=== PATIENT | female | born 1985 | race Caucasian/White ===

== ENCOUNTER 2017-12-14 03:44 | Inpatient (IN) | payer BC, MEDICAID, OTHER ==
[~2017-12-14] VITALS: Ht 160 cm; Wt 100.2 kg
[2017-12-14] MEDS ORDERED: PREN1TAB78 PO (04:27)
[2017-12-14] MEDS ORDERED: DEXT 5%/LR + PITOCIN 20UNITS/L 1,000 ML IV SCH ×2 (04:28→06:45)
[2017-12-14] MEDS ORDERED: LACTATED RINGERS 1,000 ML IV SCH (04:28)
[2017-12-14] MEDS ORDERED: NALOXONE HCL 0.4 MG/ML 1ML VIAL IM PRN (04:30)
[2017-12-14] MEDS ORDERED: MAGNESIUM 20 G PREMIX (L & D) 500 ML IV SCH (04:30)
[2017-12-14] MEDS ORDERED: BUTORPHANOL TARTRATE 2 MG/ML VIAL IV PRN (04:30)
[2017-12-14] MEDS ORDERED: METHYLERGONOVINE MALEATE 0.2 MG/ML IM PRN (04:30)
[2017-12-14] MEDS ORDERED: LIDOCAINE HCL 1% 20ML VIAL (Pyxis) INJ INFIL SCH (04:30)
[2017-12-14] MEDS ORDERED: AMPICILLIN 2,000 MG in SODIUM CHLORIDE 0.9% 100 ML IV SCH (05:00)
[2017-12-14] MEDS: DEXT 5%/LACTATED RINGERS 1,000 ML IV SCH ×2 (05:00→09:17)
[2017-12-14 05:27] LABS: CHLORIDE 104 mEq/L (98-107)
[2017-12-14 05:38] LABS: INR 0.9; PARTIAL THROMBOPLASTIN TIME 27.5 sec (23.4-31.0); PROTHROMBIN TIME 9.5 sec (9.4-11.6)
[2017-12-14 05:39] LABS: CLARITY URINE CLEAR (CLEAR); COLOR URINE YELLOW (YELLOW); KETONES URINE NEGATIVE (NEGATIVE); LEUKOCYTE ESTERASE URINE NEGATIVE (NEGATIVE); NITRITE URINE NEGATIVE (NEGATIVE); OCCULT BLOOD URINE 2+ (NEGATIVE); PROTEIN URINE NEGATIVE (NEGATIVE); SPECIFIC GRAVITY URINE 1.024 (1.005-1.030); UROBILINOGEN URINE 0.2 E.U./dL (0.2-1.0)
[2017-12-14 06:05] LABS: *AMPHETAMINES SCREEN URINE NEGATIVE (NEGATIVE); *BARBITURATES SCREEN URINE NEGATIVE (NEGATIVE); *BENZODIAZEPINES SCREEN URINE NEGATIVE (NEGATIVE); *COCAINE SCREEN URINE NEGATIVE (NEGATIVE); CANNABINOID URINE SCREEN NEGATIVE (NEGATIVE); PHENCYCLIDINE URINE SCREEN NEGATIVE (NEGATIVE)
[2017-12-14 06:06] LABS: METHADONE URINE SCREEN NEGATIVE (NEGATIVE); OPIATES URINE SCREEN NEGATIVE (NEGATIVE)
[2017-12-14] MEDS ORDERED: RHO(D) IMMUNE GLOBULIN 300 MCG/SYR IM PRN (06:45)
[2017-12-14] MEDS ORDERED: ACETAMINOPHEN WITH CODEINE 300/30MG TABLET PO PRN (06:45)
[2017-12-14] MEDS ORDERED: BENZOCAINE/LANOLIN/ALOE VERA SPRAY TOP PRN (06:45)
[2017-12-14] MEDS ORDERED: IBUPROFEN 400MG TABLET PO PRN (06:45)
[2017-12-14 06:58] LABS: HEMATOCRIT. 40.4 % (36.0-48.0); HEMOGLOBIN. 13.5 g/dL (12.0-16.0); MEAN CORPUSCULAR HEMOGLOBIN 26.8 pg (28.0-32.0); MEAN CORPUSCULAR VOLUME 80.3 fL (81.0-99.0); PLATELET 139 x1000/uL (130-400); RED BLOOD CELL COUNT 5.03 mill/uL (4.2-5.4); RED CELL DISTRIBUTION WIDTH 14.6 % (11.6-14.6)
[2017-12-14 08:30] VITALS: BP 122/74
[2017-12-14 09:05] VITALS: BP 115/70
[2017-12-14 10:59] LABS: HEPATITIS B SURFACE ANTIGEN NEGATIVE
[2017-12-14] MEDS ORDERED: AMPICILLIN 1,000 MG in SODIUM CHLORIDE 0.9% 50 ML IV SCH (11:00)
[2017-12-14 11:06] LABS: RUBELLA IGG > 500.0 IU/mL (4.99-10)
[2017-12-14 14:00] LABS: PLATELET ESTIMATE NORMAL
[2017-12-14 16:00] VITALS: BP 117/74
[2017-12-14 20:00] VITALS: BP 129/96
[2017-12-14 21:25] VITALS: BP 129/72
[2017-12-14] MEDS: IBUPROFEN 800MG TABLET PO PRN (21:27)
[2017-12-15] VITALS: BP 125/70
[2017-12-15 08:00] VITALS: BP 117/76
[2017-12-15 09:08] LABS: BASOPHILS % 0.5 % (0.0-2.0); EOSINOPHILS % 0.6 % (0.0-5.0); HEMATOCRIT. 35.8 % (36.0-48.0); HEMOGLOBIN. 12.1 g/dL (12.0-16.0); LYMPHOCYTES % 21.6 % (20.0-50.0); MEAN CORPUSCULAR HEMOGLOBIN 27.3 pg (28.0-32.0); MEAN CORPUSCULAR VOLUME 80.8 fL (81.0-99.0); MEAN PLATELET VOLUME 9.6 fl (7.4-10.4); MONOCYTES % 5.6 % (2.0-8.0); NEUTROPHILS % 71.7 % (40.0-76.0); PLATELET 114 x1000/uL (130-400); RED BLOOD CELL COUNT 4.43 mill/uL (4.2-5.4)
[2017-12-15 18:16] VITALS: BP 121/74
[2017-12-15 19:05] VITALS: BP 130/83
[2017-12-15 22:00] VITALS: BP 128/85
[2017-12-16] VITALS: BP 138/87
[2017-12-16 08:00] VITALS: BP 128/90
[2017-12-16 08:22] VITALS: BP 128/90
[2017-12-16] MEDS: IBUPROFEN 800MG TABLET PO PRN (08:22)
[2017-12-16] MEDS ORDERED: TETANUS, DIPHTHERIA, PERTUSSIS VAC/PF 0.5ML (>7YR OLD) IM ONE (12:00)
== END 2017-12-16 12:30 | disposition home or self-care (01) | DRG 775 ==
LOC: L&D 03:44 → OBSVTOIN 03:44 → 7EST PP/OB 08:14
PROVIDERS: ADMIT Obstetrics & Gynecology; ATTEND Obstetrics & Gynecology
PROC: 10E0XZZ Delivery of Products of Conception, External Approach (ICD-10-PCS; principal; 2017-12-15)
PROC: 0W8NXZZ Division of Female Perineum, External Approach (ICD-10-PCS; 2017-12-15)
DX: O80 Encounter for full-term uncomplicated delivery (principal); Z37.0 Single live birth; Z3A.37 37 weeks gestation of pregnancy; Z83.3 Family history of diabetes mellitus
CPT/HCPCS: 36415; 80053; 80305; 81003; 85007; 85025; 85027; 85610; 85730; 86592; 86703; 86762; 86850; 86900; 87340; 90715; J0290; J2590; J3475; J3490; J7050; J7120; J7121